=== PATIENT | male | born 1995 | race Caucasian/White ===

== ENCOUNTER 2021-05-22 18:07 | Emergency (ER) | payer BC ==
[~2021-05-22] VITALS: Ht 193 cm; Wt 88.6 kg
[2021-05-22 18:24] VITALS: BP 109/69; PULSE 83; TEMP 98.2
== END 2021-05-22 19:18 | disposition home or self-care (01) ==
LOC: COL.ER 18:07
DX: S52.502A Unspecified fracture of the lower end of left radius, initial encounter for closed fracture (principal); S52.615A Nondisplaced fracture of left ulna styloid process, initial encounter for closed fracture; W10.9XXA Fall (on) (from) unspecified stairs and steps, initial encounter; Y92.009 Unspecified place in unspecified non-institutional (private) residence as the place of occurrence of the external cause